=== PATIENT | female | born 1985 ===

== ENCOUNTER 2018-03-05 09:52 | Emergency (ER) | payer MEDICAID, OTHER ==
--- NOTE | 2018-03-05 10:41 | EDPHY ---
HPI/HX/ROS/PE/MDM Narrative: CHIEF COMPLAINT: Left breast pain HPI: The patient is a 7-months 31 y/o female arriving with her complaining of intermittent left breast pain increasing in frequency over the last week. She has a history of a breast augmentation May 2017 complicated by a subsequent arterial bleed in the area that required urgent surgery to treat it. She's had no issues since then until one week ago when she began to notice occasional soreness and burning sensation on the lateral aspect of her left breast in the same area as the prior arterial rupture. Her pain has increased in frequency and severity and occasionally has associated numbness. Pain is aggravated by palpation. She is visiting from [place] and contacted her surgeons back home to discuss symptoms. They referred her to the ED for an ultrasound of her left breast to rule out recurrent bleed. She denies any trauma to the area, though notes she began light chest workouts about 3 weeks ago. No associated redness, swelling, rash, or fever. She is otherwise healthy. REVIEW OF SYSTEMS: Aside from elements discussed in the HPI, a comprehensive 10-point review of systems was reviewed and is negative. PMH: Breast augmentation 2016 complicated by ruptured artery in left breast , she believes it was treated with cautery. SOCIAL HISTORY: at bedside. 2 daughters. From [place]. PHYSICAL EXAM: General:Patient is alert, in no acute distress. ENT:Eyes are normal to inspection. ENT inspection normal. Neck: Normal inspection. Full range of motion. Respiratory:No respiratory distress. Breath sounds normal bilaterally. Cardiovascular: Regular rate and rhythm. Strong peripheral pulses. Normal cap refill. Chest: Tenderness along left lateral aspect of breast, no swelling, ecchymosis, erythema, or warmth. Abdomen:The abdomen is nontender to palpation. There are no peritoneal signs. T Back: Normal to inspection. No tenderness to palpation. Skin: Normal color. No rash. Warm and dry. Extremities: Normal appearance. Full range of motion. Neuro: Oriented x3. Normal motor function. Normal sensory function. ED Course: Left breast US: normal MDM: This patient presents with left upper breast pain that feels somewhat similar to when she had an arterial rupture related to breast augmentation surgery. She is here for an ultrasound to rule this out. Our breast ultrasound shows no sign of fluid collection. The patient declines further workup. - Data Points Imaging Results: Imaging Impressions Breast Ultrasound 03/05/18 10:41 Impression: No visible etiology for the patient's pain. BI-RADS 1: Negative. Recommendation: Clinical follow-up is recommended for the patient's breast pain with no visible correlate on ultrasound. Screening mammograms at age 40 or sooner if clinically indicated. Findings discussed with Wilfred Murphy MD 03/05/2018 at 11:34. Imaging: Discussed imaging studies w/ soil conservation aide Radiologist General Time Seen by Provider: 03/05/18 10:11 Initial Vital Signs: Initial Vital Signs Temperature (C) 36.4 C 03/05/18 09:54 Heart Rate 68 03/05/18 09:54 Respiratory Rate 16 03/05/18 09:54 Blood Pressure 106/55 L 03/05/18 09:54 O2 Sat (%) 96 03/05/18 09:54 O2 Delivery Mode Room Air Allergies/Adverse Reactions: gluten Allergy (Verified 03/05/18 09:57) Itching Home Medications: Medication Instructions Recorded Cod Liver Oil 1 cap PO DAILY 01/21/15 Dha 1 cap PO DAILY 01/21/15 1 tab PO DAILY 01/21/15 Probiotic 1 cap PO DAILY 01/21/15 Synthroid 200 mcg PO DAILY 01/21/15 Vitamin D3 (OTC) 5,000 iunits PO DAILY 01/21/15 Ibuprofen [Motrin (*)] 600 mg PO Q6 PRN #30 tab 03/01/15 Acetaminophen with Codeine 1 tab PO DAILY 03/02/15 [TYLENOL #3] Departure - Departure Disposition: Home, Routine, Self-Care Clinical Impression: Breast pain, left Condition: Good Instructions: Breast Self Exam for Women (ED) Additional Instructions: Follow up with your OBGYN and surgeon upon your return home for continued symptoms. Return to the ED for worsening of condition. Referrals: Remedios Mireles DO [Doctor of Osteopathy] - As per Instructions Report Scribed for: Wilfred Murphy Report Scribed by: Tameka Arteaga Date of Report: 03/05/18 Time of Report: 10:22 Physician Review and Approval Statement: Portions of this note were transcribed by an ED scribe. I personally performed the history, physical exam, and medical decision making; and confirm the accuracy of the information in the transcribed note.
[2018-03-05 11:52] VITALS: BP 110/66
== END 2018-03-05 11:52 | disposition home or self-care (01) ==
DX: O92.29 Other disorders of breast associated with pregnancy and the puerperium (principal); Z3A.28 28 weeks gestation of pregnancy